=== PATIENT | male | born 2000 | race Asian ===

== ENCOUNTER 2018-10-03 03:54 | Emergency (ER) | payer OTHER ==
--- NOTE | 2018-10-03 04:13 | ED ---
Psychiatric Complaint - HPI Summary HPI Summary: This patient is a 17 year old male presenting to [facility] with a psychiatric complaint. The patient states he is suicidal. He is reporting anger toward himself, and fear of everything that is making him want to harm himself. Pt reports being very sad. He reports it has been going on for a couple of years and recently started getting treatment. His father said he has not been doing well in school and he has not had a good relationship with his friend recently. - History Of Current Complaint Chief Complaint: EDSuicidal Time Seen by Provider: 10/03/18 04:03 Hx Obtained From: Patient Onset/Duration: Lasting Weeks Timing: Constant Character: Angry Has Suicidal: Reports: Thoughts - Allergies/Home Medications Allergies/Adverse Reactions: Allergies Allergy/AdvReac Type Severity Reaction Status Date / Time No Known Allergies Allergy Verified 10/03/18 03:59 Home Medications: Home Medications Venlafaxine EXT RELEASE CAP* [Effexor Xr CAP*] 75 mg PO DAILY 10/03/18 [History Confirmed 10/03/18] PMH/Surg Hx/FS Hx/Imm Hx Cardiovascular History: Denies: Hx Coronary Artery Disease Respiratory History: Denies: Hx Chronic Obstructive Pulmonary Disease (COPD) Infectious Disease History: No Infectious Disease History: Denies: Traveled Outside the [place] in Last 30 Days - Family History Known Family History: Positive: Non-Contributory - Social History Occupation: Student Alcohol Use: None Hx Substance Use: No Substance Use Type: Reports: None Review of Systems Negative: Fever Psychological: Other - Suicidal Ideation Positive: Depressed All Other Systems Reviewed And Are Negative: Yes Physical Exam - Summary Physical Exam Summary: Appearance: Well appearing, no pain distress Skin: warm, dry, reflects adequate perfusion Head/face: normal Eyes: EOMI, MORIAH ENT: normal Neck: supple, non-tender Respiratory: CTA, breath sounds present Cardiovascular: RRR, pulses symmetrical Abdomen: non-tender, soft Musculoskeletal: normal, strength/ROM intact Neuro: normal, sensory motor intact, A&Ox3 Psych: Depressed affect. Triage Information Reviewed: Yes Vital Signs On Initial Exam: Initial Vitals Temp Pulse Resp BP Pulse Ox 98.6 F 98 16 148/112 99 10/03/18 03:55 10/03/18 03:55 10/03/18 03:55 10/03/18 03:55 10/03/18 03:55 Vital Signs Reviewed: Yes Diagnostics - Vital Signs Vital Signs Temp Pulse Resp BP Pulse Ox 10/03/18 03:55 98.6 F 98 16 148/112 99 - Laboratory Result Diagrams: 10/03/18 04:12 10/03/18 04:12 Lab Statement: Any lab studies that have been ordered have been reviewed, and results considered in the medical decision making process. Course/Dx - Course Course Of Treatment: This patient is a 17 year old male presenting to [facility] with a psychiatric complaint. The patient states he is suicidal. He will be signed out to Dr. Felix at shift change 0700 pending MHE. - Differential Dx/Clinical Impression Differential Diagnosis/HQI/PQRI: Positive: Depression, Suicidal Ideation Provider Diagnosis: Suicidal ideation, Depression Discharge - Sign-Out/Discharge Documenting (check all that apply): Sign-Out Patient Signing out patient TO: Jerardo Felix - At shift change 0700 pending MHE - Discharge Plan Condition: Stable - Billing Disposition and Condition Condition: STABLE - Attestation Statements Document Initiated by Scribe: Yes Documenting Scribe: Jose Ho Provider For Whom Sharla is Documenting (Include Credential): Benson Blackman MD Scribe Attestation: IJose, scribed for Benson Blackman MD on 10/03/18 at 0647. Scribe Documentation Reviewed: Yes Provider Attestation: The documentation as recorded by the anitaibJose cardona accurately reflects the service I personally performed and the decisions made by me, Benson Blackman MD Status of Scribe Document: Viewed
--- OUTSIDE RECORDS SUMMARY | 2018-10-03 04:34 | XMS REPORT | Summary of Care ---
:2000 Author Organization [facility] Address [address] [address] Care Team Providers Name Role Phone None, [place] Primary Care Provider Unavailable Reason for Visit Reason Comments Establish Care here to establish a new PCP; Bilateral knee increased pain especiallywith bending/squating; lower back pain; and concerned with increased depression/stress. Encounter Details Date Type Department Care Team Description 09/23/2018 Office Visit Peralta Lanre Doll DO Anxiety and depression (Primary Dx); Practice [address] [facility] Patellar tendinitis of both knees [address] [place] [address] [place] [address] [phone] Allergies No Known Allergiesdocumented as of this encounter (statuses as of 09/23/2018) Medications Medication Sig Dispensed Refills Start Date End Date Status venlafaxine (EFFEXOR Take 1 Cap by 60 Cap 0 09/23/2018 Active XR) 75 MG Oral CAPSULE mouth DAILY. SR 24 HRIndications: Anxiety and depression naproxen (NAPROSYN) 500 Take 1 Tab by 20 Tab 0 09/23/2018 Active MG Oral TabIndications: mouth TWICE Patellar tendinitis of DAILY. With food both knees documented as of this encounter (statuses as of 09/23/2018) Active Problems No known active problemsdocumented as of this encounter (statuses as of 2018) Immunizations Name Administration Dates Next Due DTAP Vaccine 01/29/1999, 1998, 1998 Hepatitis A Vaccine Peds 02/06/2009, 05/16/2008 Hepatitis B Vaccine 02/06/2009, 07/26/2008, 05/16/2008 Human Papillomavirus 09/27/2016 MENINGOCOCCAL CONJUGATE VACCINE 09/27/2016, 09/28/2014 MMR VACCINE 07/26/2008, 05/16/2008 Measles Vaccine 08/27/1999 Polio - Inactivated Vaccine 05/16/2008, 01/29/1999, 1998, 1998 TDAP Vaccine 12/23/2013 Tetanus Vaccine 05/16/2008 Varicella Vaccine Live 09/19/2008, 05/16/2008 documented as of this encounter Social History Tobacco Use Types Packs/Day Years Used Date Never Smoker Smokeless Tobacco: Never Used Alcohol Use Drinks/Week oz/Week Comments Never Alcohol Habits Answer Date Recorded How often do you have a drink containing alcohol? Never 09/23/2018 How many drinks containing alcohol do you have on a typical Not asked day when you are drinking? How often do you have six or more drinks on one occasion? Not asked Sex Assigned at Date Recorded Not on file Job Start Date Occupation Industry Not on file Not on file Not on file Travel History Travel Start Travel End No recent travel history available. documented as of this encounter Last Filed Vital Signs Vital Sign Reading Time Taken Comments Blood Pressure 116/58 09/23/2018 10:35 AM EDT Pulse 71 09/23/2018 10:35 AM EDT Temperature - - Respiratory Rate - - Oxygen Saturation 99% 09/23/2018 10:35 AM EDT Inhaled Oxygen Concentration - - Weight 56.8 kg (125 lb 4.8 oz) 09/23/2018 10:35 AM EDT Height 165.1 cm (5' 5") 09/23/2018 10:35 AM EDT Body Mass Index 20.85 09/23/2018 10:35 AM EDT documented in this encounter Patient Instructions Patient InstructionsLanre Meléndez DO - 09/23/2018 10:20 AM EDTStart effexor See you back in 3 weeks See a psychologist If mood worsens, stop the med and call me. Sign up for eguthrie to communicate documented in this encounter Progress Notes Lanre Meléndez DO - 09/23/2018 10:20 AM EDT PATIENT: Roc Christianson : 2000 DATE OF SERVICE: 09/23/2018 CHIEF COMPLAINT: Chief Complaint Patient presents with Establish Care here to establish a new PCP; Bilateral knee increased pain especiallywith bending/squating; lower back pain; and concerned with increased depression/ stress. Subjective HISTORY OF PRESENT ILLNESS: Roc Christianson is a 17-y.o. male. HPI Anxiety and depression History of bullying Going on symptoms since grade 5 No HI Has had thoughts of self harm and tried to drown himself in bath tub, take few pills and knife to cut wrist. But always stopped himself thinking he can't leave parents alone Feels alone Didn't pass college No drug use No excess etoh use Excessive sleep Fatigue See phq9 below Knee pain: Both sides 1 week No falls Below knee cap No swelling No oral med done History reviewed. No pertinent past medical history. History reviewed. No pertinent family history. Current Outpatient Medications Medication Sig naproxen (NAPROSYN) 500 MG Oral Tab Take 1 Tab by mouth TWICE DAILY. With food venlafaxine (EFFEXOR XR) 75 MG Oral CAPSULE SR 24 HR Take 1 Cap by mouth DAILY. No current facility-administered medications for this visit. No Known Allergies Social History Socioeconomic History Marital status: Single Spouse name: Not on file Number of children: Not on file Years of education: Not on file Highest education level: Not on file Occupational History Not on file Social Needs Financial resource strain: Not on file Food insecurity: Worry: Not on file Inability: Not on file Transportation needs: Medical: Not on file Non-medical: Not on file Tobacco Use Smoking status: Never Smoker Smokeless tobacco: Never Used Substance and Sexual Activity Alcohol use: Never Frequency: Never Drug use: Never Sexual activity: Not on file Lifestyle Physical activity: Days per week: Not on file Minutes per session: Not on file Stress: Not on file Relationships Social connections: Talks on phone: Not on file Gets together: Not on file Attends mandaeism service: Not on file Active member of club or organization: Not on file Attends meetings of clubs or organizations: Not on file Relationship status: Not on file Intimate partner violence: Fear of current or ex partner: Not on file Emotionally abused: Not on file Physically abused: Not on file Forced sexual activity: Not on file Other Topics Concern Not on file Social History Narrative Moved from [place] 1 month ago Work: [employer] Finished high school Lives with parents and sibling REVIEW OF SYSTEMS: Review of Systems Constitutional: Negative for chills, diaphoresis, fever and weight loss. HENT: Negative for congestion, ear discharge, ear pain, sinus pain and sore throat. Eyes: Negative for blurred vision. Respiratory: Negative for cough, hemoptysis, sputum production, shortness of breath and wheezing. Cardiovascular: Negative for chest pain, palpitations, orthopnea, claudication, leg swelling and PND. Gastrointestinal: Negative for abdominal pain, blood in stool, constipation, diarrhea, melena, nausea and vomiting. Genitourinary: Negative for dysuria, flank pain, frequency, hematuria and urgency. Musculoskeletal: Positive for joint pain. Negative for neck pain. Skin: Negative for itching and rash. Neurological: Negative for dizziness, sensory change, speech change, focal weakness, loss of consciousness, weakness and headaches. Endo/Heme/Allergies: Negative for polydipsia. Psychiatric/Behavioral: Positive for depression. Negative for substance abuse. The patient is nervous/anxious. Objective PHYSICAL EXAM: VITALS: BP 116/58 (BP Location: Left arm, Patient Position: Sitting) | Pulse 71 | Ht 5' 5" (1.651m) | Wt 125 lb 4.8 oz (56.8 kg) | SpO2 99% | BMI 20.85 kg/m Body mass index is 20.85 kg/m. Physical Exam Constitutional: He is oriented to person, place, and time. He appears well- developed and well-nourished. No distress. HENT: Head: Normocephalic and atraumatic. Nose: Nose normal. Mouth/Throat: No oropharyngeal exudate. Eyes: Pupils are equal, round, and reactive to light. Conjunctivae are normal. Right eye exhibits nodischarge. Left eye exhibits no discharge. No scleral icterus. Neck: Normal range of motion. Neck supple. No tracheal deviation present. No thyromegaly present. Cardiovascular: Normal rate and regular rhythm. Pulmonary/Chest: Effort normal and breath sounds normal. No stridor. No respiratory distress. He hasno wheezes. He has no rales. Abdominal: Soft. He exhibits no distension and no mass. There is no tenderness. There is no rebound and no guarding. Musculoskeletal: Normal range of motion. patellar tendon pain reproducible Lymphadenopathy: He has no cervical adenopathy. Right: No supraclavicular adenopathy present. Left: No supraclavicular adenopathy present. Neurological: He is alert and oriented to person, place, and time. He exhibits normal muscle tone. Skin: Skin is warm and dry. He is not diaphoretic. No pallor. Psychiatric: His behavior is normal. Depressed ASSESSMENT / IMPRESSION: ICD-9-CM ICD-10-CM 1. Anxiety and depression 300.00 F41.9 venlafaxine (EFFEXOR XR) 75 MG Oral CAPSULE SR 24 HR 311 F32.9 2. Patellar tendinitis of both knees 726.64 M76.51 naproxen (NAPROSYN) 500 MG Oral Tab M76.52 Plan nsaid for tendinitis Rest and ice Patient Instructions Start effexor See you back in 3 weeks See a psychologist If mood worsens, stop the med and call me. Sign up for eguthrie to communicate Author: Lanre Meléndez DO 09/23/2018 13:05 documented in this encounter Plan of Treatment Date Type Specialty Care Team Description 10/14/2018 Office Visit Family Practice Lanre Meléndez DO [address] [place] [address] [phone] Health Maintenance Due Date Last Done Comments HIV SCREENING 2013 HPV IMMUNIZATION SERIES (2 - 10/25/2016 09/27/2016 Male 3-dose series) INFLUENZA VACCINE (#1) 2018 DEPRESSION SCREENING 09/23/2021 Postponed from 2010 (Other) MENINGOCOCCAL VACCINE IMM Completed 09/27/2016, 09/28/2014 PNEUMOCOCCAL 0-64 YRS Aged Out No longer eligible based on patient's age to complete this topic documented as of this encounter Results Not on filedocumented in this encounter Visit Diagnoses Diagnosis Anxiety and depression - Primary Dysthymic disorder Patellar tendinitis of both knees documented in this encounter Insurance Payer Benefit Plan / Subscriber ID Effective Dates Phone Address Type Group [employer] xxxxxxxxxx 2018-Present [employer] documented as of this encounter
[2018-10-03 04:46] LABS: ABS Basophils 0.1 10^3/ul (0-0.2); ABS Eosinophils 0.1 10^3/ul (0-0.6); ABS Lymphocytes 1.9 10^3/ul (1.0-4.8); ABS Monocytes 1.1 10^3/ul (0-0.8); ABS Neutrophils 12.4 10^3/ul (1.5-7.7); Eosinophil % 0.9 %; Hematocrit 46 % (42-52); Hemoglobin 15.4 g/dL (14.0-18.0); Lymphocyte % 12.3 %; Mean Corpuscular HGB Conc 34 g/dL (31-36); Mean Corpuscular Hemoglobin 29 pg (27-31); Mean Corpuscular Volume 85 fL (80-94); Mean Platelet Volume 9.1 fL (7.4-10.4); Nucleated Red Blood Cells % 0.1; Platelet Count 241 10^3/uL (150-450); Red Blood Count 5.35 10^6 /uL (4.18-5.48); Red Cell Distribution Width 14 % (10-15); White Blood Count 15.6 10^3/uL (3.5-10.8)
[2018-10-03 04:48] LABS: Urine Appearance Clear; Urine Bilirubin Negative (Negative); Urine Blood Negative (Negative); Urine Color Yellow; Urine Glucose Negative (Negative); Urine Ketones Negative (Negative); Urine Nitrite Negative (Negative); Urine Protein Negative (Negative); Urine Specific Gravity 1.014 (1.010-1.030); Urine Urobilinogen Negative (Negative)
[2018-10-03 05:00] LABS: ALT 20 U/L (7-52); AST 24 U/L (13-39); Albumin 5.3 g/dL (3.2-5.2); Albumin/Globulin Ratio 1.7 (1-3); Alkaline Phosphatase 60 U/L (34-104); Anion Gap 9 mmol/L (2-11); BUN/Creatinine Ratio 17.4 (8-20); Blood Urea Nitrogen 16 mg/dL (6-24); CO2 Carbon Dioxide 28 mmol/L (22-32); Calcium 10.1 mg/dL (8.6-10.3); Chloride 100 mmol/L (101-111); EGFR African American 128.2 (>60); Globulin 3.1 g/dL (2-4); Glucose 109 mg/dL (70-100); Potassium 3.8 mmol/L (3.5-5.0); Sodium 137 mmol/L (135-145); Total Protein 8.4 g/dL (6.4-8.9)
[2018-10-03 05:11] LABS: Urine Benzodiazepine Screen None Detected (None Detect); Urine Opiates Screen None Detected (None Detect)
[2018-10-03 05:22] LABS: Acetaminophen < 15 mcg/mL; Alcohol < 10 mg/dL (<10); Salicylate < 2.50 mg/dL (<30)
[2018-10-03 05:38] LABS: TSH (Thyroid Stimulating Horm) 1.94 mcIU/mL (0.34-5.60)
--- NOTE | 2018-10-03 07:07 | ED ---
Progress - Progress Note Progress Note: This t is a sign out from Dr. Blackman to Dr. Felix at shift change 0700 10/03/18 pending a MHE and disposition. Dr. Barragan, psychiatrist, at 0915 recommended discharging the pt home due to the family's expressed desire for the pt not to be admitted to [facility]. The parents informed Dr. Barragan that they were capable of watching the pt. The pt was referred to [facility] for further psychological care. Course/Dx - Course Course Of Treatment: This t is a sign out from Dr. Blackman to Dr. Felix at shift change 0700 10/03/18 pending a MHE and disposition. . Patient was ablated by Dr. Barragan and he recommends for the patient to be admitted voluntarily however, the patient and the family declined admission. They will follow-up as an outpatient with [facility] services. The patient will be discharged with family parents. - Diagnoses Provider Diagnoses: Depression - Provider Notifications Discussed Care Of Patient With: Virgil Barragan Time Discussed With Above Provider: 09:15 Instructed by Provider To: Other - recommended discharging the pt home due to the family's expressed desire for the pt not to be admitted to [facility]. The parents informed Dr. Barragan that they were capable of watching the pt. The pt was referred to [facility] for further psychological care. Discharge - Sign-Out/Discharge Documenting (check all that apply): Patient Departure - discharge Patient Received Moderate/Deep Sedation with Procedure: No - Discharge Plan Condition: Stable Disposition: HOME Patient Education Materials: Depression (ED) Referrals: No Primary Care Phys,NOPCP [Primary Care Provider] - - Billing Disposition and Condition Condition: STABLE Disposition: Home - Attestation Statements Document Initiated by Scribe: Yes Documenting Scribe: Oniel Sen Provider For Whom Scribe is Documenting (Include Credential): Jerardo Felix MD Scribe Attestation: Oniel Long, scribed for Jerardo Felix MD on 10/03/18 at 0933. Scribe Documentation Reviewed: Yes Provider Attestation: The documentation as recorded by the Oniel baird accurately reflects the service I personally performed and the decisions made by me, Jerardo Felix MD Status of Scribe Document: Viewed
[2018-10-03 09:41] VITALS: BP 115/72
== END 2018-10-03 09:39 | disposition home or self-care (01) ==
LOC: ED 03:54
DX: R45.851 Suicidal ideations (principal); F32.9 Major depressive disorder, single episode, unspecified; Z79.899 Other long term (current) drug therapy
CPT/HCPCS: 36415; 80053; 80307; 80320; 80329; 81003; 84443; 85025; 99284; G0480